=== PATIENT | female | born 1960 | race Asian ===

== ENCOUNTER → 2016-10-14 | Outpatient (CLI) | payer OTHER ==
--- NOTE | 2016-10-14 20:14 | MR ---
MRI of the Lumbar Spine (Without Contrast) at 1719 hour Clinical Indications: Low back pain. Evaluate for disk disease and facet degeneration. Right lower ex tremity radiculopathy (M 54.5). Technique: Sagittal and axial T1 and T2 MR sequences of the lumbar spine without contrast. Axial i maging from T12 through S1. Comparison prior MRI lumbar spine study from August 28, 2011. Findings: Lumbar vertebral bodies are of normal height without compression fractures. Conus medulla ris appears normal and ends at L1. Bone marrow signal is normal. There is a stable 8 x [address] extending toward the right S2 neural foramen. T12-L1: No disk herniation or stenosis. L1-L2: No disk herniation or stenosis. L2-L3: Minimal desiccation and loss of disk height. There is mild diffuse disk bulge with mild to mod erate right posterior lateral disk protrusion contributing to moderate right-sided neural foraminal s tenosis and mild on the left. Findings have developed since the prior study. L3-L4: Minimal desiccation without loss of disk height. There is mild diffuse disk bulge causing mini mal compression upon the dural sac. This along with mild ligamentum flavum hypertrophy contributes to borderline spinal stenosis with mild bilateral neural foraminal stenosis. Findings are stable. L4-L5: Mild desiccation and loss of disk height. There is mild to moderate diffuse disk bulge along w ith the mentum flavum hypertrophy and mild facet hypertrophy contributes to moderate spinal stenosis that has progressed since the prior study.. L5-S1: No disk herniation or stenosis. Impression: 1. Interval development of mild diffuse disk bulge at L2-L3 with mild to moderate right posterior lat eral disk protrusion and associated right-sided neural foraminal stenosis. 2. Stable mild degenerative disk disease at L3-L4 and L4-L5. 3. 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
== END ==
LOC: FIMAGING 15:59
PROVIDERS: ATTEND Physical Medicine & Rehabilitation
DX: M51.26 Other intervertebral disc displacement, lumbar region (principal); M51.36 Other intervertebral disc degeneration, lumbar region; M71.38 Other bursal cyst, other site

== ENCOUNTER → 2017-05-27 | Outpatient (CLI) | payer OTHER | LOC: FIMAGING 15:53 | PROVIDERS: ATTEND Family Medicine | DX: Z12.31 Encounter for screening mammogram for malignant neoplasm of breast (principal) | CPT/HCPCS: G0202 ==

== ENCOUNTER → 2018-07-14 | Outpatient (CLI) | payer OTHER | LOC: FIMAGING 15:44 | PROVIDERS: ATTEND Family Medicine | DX: Z12.31 Encounter for screening mammogram for malignant neoplasm of breast (principal) ==